=== PATIENT | male | born 1985 | race Caucasian/White ===

== ENCOUNTER 2017-12-05 18:41 | Emergency (ER) | payer OTHER ==
[2017-12-05] MEDS ORDERED: CEPHALEXIN 500 MG CAP PO ONE (19:18)
--- NOTE | 2017-12-05 19:58 | EDPHY ---
H & P Smoking Status: Never smoked Time Seen by Provider: 12/05/17 18:55 HPI/ROS: Chief complaint: Right 3rd finger laceration History of present illness: This is a 32-year-old male who presents to the emergency department for right 3rd finger laceration. He got the tip of it caught in a table saw. There has been some pain. Bleeding. Bleeding controlled with a dressing. No report of abnormal coolness or paresthesias in the finger. He is still moving it well. (Ja Alan) Physical Exam: General: Alert, nontoxic Skin: There is macerated tissue to the very tip of the right middle finger. Slight disruption of the distal nail bed. However distal structures line up well. No foreign body contamination. Musculoskeletal: Patient is flexing extending the finger in the DIPJ, PIP and MCP joint well. Vascular: Cap refill brisk in the right middle finger. Neurologic: Sensation intact using light touch and two-point discrimination. ( Ja Alan) Constitutional: Initial Vital Signs Temperature (C) 36.8 C 12/05/17 18:47 Heart Rate 78 12/05/17 18:47 Respiratory Rate 18 12/05/17 18:47 Blood Pressure 137/91 H 12/05/17 18:47 O2 Sat (%) 98 12/05/17 18:47 O2 Delivery Mode Room Air Allergies/Adverse Reactions: No Known Allergies Allergy (Verified 12/05/17 18:45) Home Medications: Medication Instructions Recorded DULoxetine [Cymbalta] 30 mg PO HS 09/19/11 lamOTRIGine [LamICTAL] 200 mg PO DAILY 09/19/11 Adderall 10 MG (*) 12/05/17 Cephalexin [Keflex] 500 mg PO TID 7 Days cap 12/05/17 MDM/Departure - [facility] Imaging: I viewed and interpreted images myself - [facility] Procedures: A digital block with Marcaine without epinephrine was performed, patient obtained good anesthesia (Ja Alan) Medications Given: Discontinued Medications Cephalexin HCl (Keflex) 500 mg PO EDNOW ONE PRN Reason: Protocol Stop: 12/05/17 19:19 Last Admin: 12/05/17 19:58 Dose: 500 mg ED Course/Re-evaluation: Patient seen under the supervision of my secondary supervising physician Dr. Candace Gold. Patient presents for an injury to his right middle finger. The finger appears neurovascularly intact. Although he has a cut to the tip of the finger I believe any attempts suturing would cause deformity. It is anesthetized and cleaned. It is properly dressed. His tetanus is already up-to -date. X-ray confirms chip fracture, he is started on antibiotics for an open fracture. I have discussed with him the importance of following up with Orthopedics. I have consulted with [facility] and they will help him follow-up with one of their doctors as he is a [facility] patient. Home care is discussed. Return precautions given. (Ja Alan) The patient was evaluated and managed by the physician delinquent tax collection assistant. I have reviewed this chart and I agree with the findings and plan of care as documented , as indicated by my signature. I am the secondary supervising physician. ( Candace Gold) - Depart Disposition: Home, Routine, Self-Care Clinical Impression: Fracture, finger Finger laceration Qualifiers: Encounter type: initial encounter Finger: middle finger Damage to nail status: with damage Foreign body presence: without foreign body Laterality: right Qualified Code(s): S61.312A - Laceration without foreign body of right middle finger with damage to nail, initial encounter Condition: Good Instructions: Acute Wounds (ED) Additional Instructions: Please follow-up with [facility] on Friday for recheck Take antibiotics as prescribed until finished If symptoms worsen or new symptoms develop return to the emergency room for recheck Prescriptions: Cephalexin [Keflex] 500 mg PO TID 7 Days cap Referrals: NONE *PRIMARY CARE P,. [Primary Care Provider] - As per Instructions [facility] ,. [Edm Groups for Call Sched] - As per Instructions
[2017-12-05 20:14] VITALS: BP 129/85
== END 2017-12-05 20:13 | disposition home or self-care (01) ==
PROC: 3E0T3BZ Introduction of Anesthetic Agent into Peripheral Nerves and Plexi, Percutaneous Approach (ICD-10-PCS; principal; 2017-12-05)
DX: S61.312A Laceration without foreign body of right middle finger with damage to nail, initial encounter (principal); S62.662B Nondisplaced fracture of distal phalanx of right middle finger, initial encounter for open fracture; W31.2XXA Contact with powered woodworking and forming machines, initial encounter; Y99.8 Other external cause status